=== PATIENT | male | born 1955 | race Caucasian/White ===

== ENCOUNTER 2021-10-06 09:44 | Emergency (ER) | payer MEDICARE, OTHER ==
[~2021-10-06] VITALS: Ht 160 cm; Wt 66.0 kg
[2021-10-06] MEDS ORDERED: KETOROLAC 60MG/2ML VIAL IM ONE (10:15)
[2021-10-06] MEDS ORDERED: HYDROCODONE/ACETAMINOPHEN 10/325MG TABLET PO ONE (10:15)
[2021-10-06] MEDS ORDERED: HYDROCODONE/ACETAMINOPHEN 10/325MG TABLET PO NR (12:15)
[2021-10-06] MEDS ORDERED: CYCL5TAB MT (14:06)
[2021-10-06] MEDS ORDERED: TRAM50TA3 MT (14:06)
[2021-10-06] MEDS ORDERED: IBUP-2029 MT (14:06)
[2021-10-06] MEDS ORDERED: IBUPROFEN 400MG TABLET PO NR (14:30)
[2021-10-06] MEDS ORDERED: DIAZEPAM 5 MG/ML 2ML CPJ IM NR (14:30)
[2021-10-06 15:44] VITALS: BP 166/85
== END 2021-10-06 15:54 | disposition home or self-care (01) ==
LOC: ER 10:42
DX: S39.012A Strain of muscle, fascia and tendon of lower back, initial encounter (principal); S70.01XA Contusion of right hip, initial encounter; I51.9 Heart disease, unspecified; M54.30 Sciatica, unspecified side; Z98.1 Arthrodesis status; Z95.1 Presence of aortocoronary bypass graft; Z79.01 Long term (current) use of anticoagulants; W01.0XXA Fall on same level from slipping, tripping and stumbling without subsequent striking against object, initial encounter; Y93.89 Activity, other specified; Y92.012 Bathroom of single-family (private) house as the place of occurrence of the external cause
CPT/HCPCS: 72131; 72192; 96372; 99284; J1885